=== PATIENT | male | born 2000 | race African-American/Black ===

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

== ENCOUNTER 2019-07-29 11:05 | Emergency (ER) | payer OTHER ==
[2019-07-29] MEDS ORDERED: LIDOCAINE 1% W/EPI 1:100,000 MDV 50 ML VIAL ONE (11:29)
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
[2019-07-29 12:41] VITALS: BP 133/68; TEMP 98; O2SAT 100
== END 2019-07-29 12:36 | disposition home or self-care (01) ==
LOC: ER 11:05
PROC: 0JQ10ZZ Repair Face Subcutaneous Tissue and Fascia, Open Approach (ICD-10-PCS; principal; 2019-07-29)
DX: S01.112A Laceration without foreign body of left eyelid and periocular area, initial encounter (principal); Y04.2XXA Assault by strike against or bumped into by another person, initial encounter; Y93.9 Activity, unspecified; Y92.149 Unspecified place in prison as the place of occurrence of the external cause; Z04.71 Encounter for examination and observation following alleged adult physical abuse; Z23 Encounter for immunization
CPT/HCPCS: 70450; 70486; 72125; 76377; 99283